=== PATIENT | male | born 1960 | race Caucasian/White ===

== ENCOUNTER → 2021-06-14 | Outpatient (CLI) | payer OTHER ==
[2013-12-18 08:35] VITALS: BP 139/82
[~2021-06-14] MED LIST: ASPI81TA50 PO; ATOR10TA PO; DIPH25CA58 PO; LISI5TAB15 PO; METF500T16 PO
--- NOTE | 2021-06-14 15:01 | KCIC ---
CT for coronary artery calcium scoring, without IV contrast, 06/14/2021 2:52 PM INDICATION: Reason: Hyperlipidemia, hypertension, past cigar smoker. Technique: Noncontrast CT images through the coronary arteries was performed . Findings: No significant noncardiac findings are identified. Visual inspection of the coronary arteries: Demonstrates multifocal calcification is described below. The computer-generated calcium scoring utilizing AJ-130 criteria are as follows: Left Main Artery: 0 Left Anterior Descending Artery: 43.5. Left Circumflex Artery: 1.9 Right Coronary Artery: 0.3. The total calcium score is 45.7. Impression: Your total calcium score is 45.7.Plaque is present. This correlates with mild heart disease and a mo derate risk for a myocardial infarction. Table: 0: No plaque is present. The chance of significant heart disease is less than 5%, and corresponds to a very low risk for a myocardial infarction. 1-10: A small amount of plaque is present. The chance of significant heart disease is less than 10%, and corresponds to a low risk for a myocardial infarction. 11-100: Plaque is present. This correlates with mild heart disease and a moderate risk for a myocardi al infarction. 101-400: A moderate amount of plaque is present. This correlates with heart disease, and a moderate t o high risk for a myocardial infarction. Over 400: A large amount of plaque is present. This correlates with a greater than 90% chance of a h igh grade stenosis. The risk for myocardial infarction is high. Electronically signed by: Lam Flanagan MD (06/14/2021 2:58 PM) [id number]
== END ==
LOC: KCIC CT 13:45
PROVIDERS: ATTEND Physician Assistant
DX: I70.90 Unspecified atherosclerosis (principal); E78.5 Hyperlipidemia, unspecified; I10 Essential (primary) hypertension; Z87.891 Personal history of nicotine dependence
CPT/HCPCS: 75571